=== PATIENT | female | born 1995 | race Caucasian/White ===

== ENCOUNTER 2018-06-01 12:36 | Emergency (ER) | payer OTHER ==
[2018-06-01] MEDS ORDERED: BENOXINATE/FLUORESCEIN DROPS RIGHT EYE (13:30)
== END 2018-06-01 13:57 | disposition home or self-care (01) ==
LOC: FTE 12:36
DX: S05.01XA Injury of conjunctiva and corneal abrasion without foreign body, right eye, initial encounter (principal); H11.151 Pinguecula, right eye; X58.XXXA Exposure to other specified factors, initial encounter; Y92.9 Unspecified place or not applicable
CPT/HCPCS: 99283; Z7502

== ENCOUNTER 2018-08-03 18:12 | Emergency (ER) | payer OTHER ==
[2018-08-03] MEDS: ONDANSETRON (ODT) 4 MG TAB ODT (19:22)
[2018-08-03] MEDS: HYDROCODONE/APAP (5/325) TAB PO (19:23)
[2018-08-03] MEDS: IBUPROFEN 600 MG TAB PO (19:23)
== END 2018-08-03 20:35 | disposition home or self-care (01) ==
LOC: FTE 18:12
DX: S63.502A Unspecified sprain of left wrist, initial encounter (principal); R07.89 Other chest pain; W22.11XA Striking against or struck by driver side automobile airbag, initial encounter
CPT/HCPCS: 29125; 71045; 72040; 73110-LT; 93005; 99284-25